=== PATIENT | female | born 1940 | race Caucasian/White ===

== ENCOUNTER → 2018-01-15 14:52 | Outpatient (CLI) | payer MEDICARE, OTHER, SELFPAY ==
[2018-01-15 15:02] LABS: Bacteria Urine None Seen
[2018-01-15 15:57] LABS: Appearance Urine UA CLEAR; Bilirubin Urine UA NEGATIVE (NEGATIVE); Color Urine UA YELLOW; Glucose Urine UA NEGATIVE (Normal); Ketones Urine UA NEGATIVE (NEGATIVE); Leukocyte Esterase Urine UA 1+ (NEGATIVE); Nitrite Urine UA Negative (Negative); Occult Blood Urine UA 3+ (Negative); Protein Urine UA NEGATIVE (Negative); Specific Gravity Urine UA 1.015 (1.000-1.035); Urobilinogen Urine UA 0.2 E.U./dL (0.2); pH Urine UA 5.5 (4.5-8.0)
[2018-01-15 17:06] LABS: Culture Indicated Urine Specimen Cultured; RBC Urine 1-5/HPF (0-5/HPF); Squamous Epithelial Cell Urine 0-1 /HPF; WBC Urine 5-10/HPF (0-5/HPF)
== END ==
PROVIDERS: PCP Family Medicine; Visit Provider Family Medicine
DX: R30.0 Dysuria (principal); R35.0 Frequency of micturition; R39.15 Urgency of urination
CPT/HCPCS: 81001; 87086

== ENCOUNTER → 2018-03-28 12:59 | Outpatient (CLI) | payer MEDICARE, OTHER, SELFPAY ==
--- NOTE | 2018-03-28 | DI.US.S_ITS ---
ULTRASOUND OF RIGHT BREAST: 03/28/2018 CLINICAL: Patient returns for additional imaging over a suspected mass in the right breast. Comparison is made to exams dated: 03/28/2018 mammogram, 06/08/2017 mammogram, and 06/06/2016 mammogram - [facility]. Real-time and Doppler ultrasound of the right breast were performed. Steve scale images of the real-time examination were reviewed. Targeted ultrasound was performed in the region of the patient's reported focal palpable abnormality in the upper outer right breast. No underlying breast mass or abnormality is identified. IMPRESSION: NEGATIVE Negative ultrasound evaluation of the area of the patient's reported palpable abnormality in the upper outer right breast. There is no sonographic evidence of malignancy. Recommend clinical follow-up for further evaluation and management of the patient's reported symptoms. Return to annual screening mammography is also recommended. These results and recommendations were discussed with the patient at the time of the exam by the acct exec. This exam was interpreted at Station ID: [id number]. Electronically Signed By: Hector Soto M.D. ecl/:03/28/2018 20:49:27 letter sent: Clinical Evaluation Ultrasound BI-RADS: 1 Negative
--- NOTE | 2018-03-28 | DI.MG.S_ITS ---
BILATERAL DIGITAL DIAGNOSTIC MAMMOGRAM 3D/2D: 03/28/2018 CLINICAL: Right breast palpable abnormality. Comparison is made to exams dated: 06/08/2017 mammogram, 06/06/2016 mammogram, and 04/13/2015 mammogram - [facility]. There are scattered fibroglandular elements in both breasts. There is a triangular marker overlying the skin of the upper right breast at the site of the patient's reported palpable abnormality. There is no underlying mammographic abnormality. No significant masses, calcifications, or other findings are seen in either breast. IMPRESSION: INCOMPLETE: NEEDS ADDITIONAL IMAGING EVALUATION No mammographic abnormality to correlate with the site of the patient's reported focal palpable abnormality. Targeted diagnostic ultrasound recommended for further evaluation, which will be performed immediately following this exam. This exam was interpreted at Station ID: [id number]. NOTE: For mammograms, a report in lay terms will be sent to the patient. Approximately 15% of breast malignancies will not be visualized mammographically. In the management of a palpable breast mass, a negative mammogram must not discourage biopsy of a clinically suspicious lesion. Electronically Signed By: Hector Soto M.D. ecl/:03/28/2018 20:47:18 letter sent: Additional Imaging Needed ACR BI-RADS Category 0: Incomplete [id number]
== END ==
PROVIDERS: Visit Provider Family Medicine
DX: R92.8 Other abnormal and inconclusive findings on diagnostic imaging of breast (principal); N63.11 Unspecified lump in the right breast, upper outer quadrant
CPT/HCPCS: 76642; 77066; G0279

== ENCOUNTER → 2020-02-22 15:15 | Outpatient (CLI) | payer OTHER, SELFPAY ==
--- NOTE | 2020-02-22 15:16 | DI.MRI.S_ITS ---
PROCEDURE: MR HEAD/BRAIN WO CON INDICATIONS: OTHER AMNESIA TECHNIQUE: Non-contrast axial T1 spin echo, axial T2 fast spin echo, sagittal and axial FLAIR, coronal T2 fast spin echo, axial gradient echo, axial diffusion and ADC through the brain. COMPARISON: None. FINDINGS: Image quality: Excellent. CSF spaces: Ventricles appear symmetric in size and shape. Basal cisterns are patent. No extra-axial fluid collections. Brain: No intracranial bleeds or mass effects. There is moderate cerebral volume loss for age. There are mild periventricular and deep white matter chronic small vessel ischemic changes. Brainstem appears normal. Diffusion-weighted images show no acute ischemic insults. No chronic ischemic insults. Normal intravascular flow voids are present. Skull and face: Calvarial bone marrow is normal in signal. Orbits are normal. There is a 1.2 cm left frontal scalp lesion. Sinuses: Sinuses and mastoids are clear. IMPRESSION: 1. No acute intracranial abnormalities. 2. Moderate cerebral volume loss and mild chronic microvascular ischemic changes. 3. A 1.2 cm left frontal scalp lesion, possibly a sebaceous cyst. Please correlate clinically.. Dictated by: Jacinto Galdamez M.D. on 02/24/2020 at 9:33 Approved by: Jacinto Galdamez M.D. on 02/24/2020 at 9:39
== END ==
PROVIDERS: PCP Internal Medicine; Referring Provider Internal Medicine; Visit Provider Internal Medicine
DX: R41.3 Other amnesia (principal); R22.0 Localized swelling, mass and lump, head
CPT/HCPCS: 70551

== ENCOUNTER → 2020-09-10 10:54 | Outpatient (CLI) | payer OTHER, SELFPAY ==
--- NOTE | 2020-09-10 | DI.CT.S_ITS ---
PROCEDURE: CT ABDOMEN W CON INDICATIONS: Epigastric pain TECHNIQUE: After the administration of oral and intravenous contrast, 5 mm thick sections acquired from the diaphragms to the iliac crests. 5 mm thick coronal and sagittal reformats were acquired. For radiation dose reduction, the following was used: automated exposure control, adjustment of mA and/or kV according to patient size. COMPARISON: [facility], CT, ABDOMEN/PELVIS WITH CONTRAST, 09/01/2014, 15:37. [facility], CT, ABDOMEN W&WO CONTRAST, 01/14/2016, 12:47. FINDINGS: Image quality: Excellent. Lung bases: There is scarring redemonstrated within the medial right middle lobe as well as the left lower lobe. Mild dependent atelectasis is also present. Heart size is normal. Moderate coronary arterial vascular calcification demonstrated. There are postsurgical changes in the left breast to Solid organs: There is progressive increase in size of a thin walled cyst arising from the uncinate process of the pancreas, measuring up to 1.7 x 1.7 x 1.8 cm compared to 1.0 x 1.0 x 1.2 cm on the prior comparison study. There is also a new small cyst anteriorly in the pancreatic head measuring up to 0.6 x 0.6 x 0.9 cm. No discrete solid nodular enhancing components visualized. The main pancreatic duct is nondistended. No solid pancreatic mass identified. No peripancreatic fat stranding or fluid. There is a small indistinct hypervascular focus redemonstrated within the posterior right hepatic dome in segment 7. This appears stable in size compared to the prior studies. The gallbladder appears within normal limits without calcified gallstones. Biliary system is non-dilated. The spleen is normal in size. No adrenal nodules. Kidneys demonstrate no hydronephrosis. Peritoneum and bowel: Visualized bowel loops appear normal in caliber. No free fluid or air. Nodes and vessels: No retroperitoneal or mesenteric adenopathy by size criteria. Aorta and inferior vena cava are normal in size. Bones: No suspicious bony lesions. No vertebral body compression fractures. Miscellaneous: No ventral hernias. IMPRESSION: 1. Increase in size of a small thin walled cystic lesion in the uncinate process of the pancreas. The findings are again suggestive of a side branch IPMN. Although there is progressive increase in size, no other high risk features such as solid nodular enhancing components or main pancreatic duct dilatation are identified. Recommend correlation clinically and GI/surgical consult if indicated. 2. New small thin wall cyst in the pancreatic head also likely represents a side branch IPMN. Recommend attention on follow-up. 3. Stable small hypervascular focus in the right hepatic lobe again likely representing a flash filling hemangioma or vascular shunting. Dictated by: Bravo Hidalgo M.D. on 09/21/2020 at 12:28 Approved by: Bravo Hidalgo M.D. on 09/21/2020 at 12:50
== END ==
PROVIDERS: PCP Internal Medicine; Referring Provider Internal Medicine; Visit Provider Internal Medicine
DX: R10.13 Epigastric pain (principal); K86.2 Cyst of pancreas
CPT/HCPCS: 74160

== ENCOUNTER → 2020-11-21 12:56 | Outpatient (CLI) | payer OTHER, SELFPAY ==
--- NOTE | 2020-11-21 13:00 | DI.MRI.S_ITS ---
PROCEDURE: MR ABDOMEN WO CON INDICATIONS: Cyst of pancreas TECHNIQUE: Coronal HASTE through the abdomen, axial 2-D FLASH in- and [id number], and breath-hold T2 FSE with fat saturation through the biliary system and pancreas. Oblique coronal and axial thin-slice HASTE, radial thick-slab HASTE centered on the extrahepatic bile ducts. Patient terminated the study prior to final coronal sequence. COMPARISON: [facility], CT, CT ABDOMEN W CON, 09/10/2020, 11:46. Prior CT studies from 01/14/2016 and 09/01/2014 archived and unable to be retrieved at time of dictation. FINDINGS: Image quality: There is mild motion artifact. Pancreas and biliary system: The gallbladder appears within normal limits without gallstones identified. Intra- and extra-hepatic biliary ducts are non dilated. No discrete filling defect identified in the common bile duct to suggest choledocholithiasis. Pancreas is normal in morphology, without peripancreatic edema or fluid. Pancreatic duct is normal in caliber. Anteriorly within the uncinate process, there is a thin walled cyst measuring up to 1.8 x 1.8 cm in transverse dimension by 1.8 cm in craniocaudal dimension. Findings appear slightly increased in size although this may be due to differences in technique. No discrete solid components identified but evaluation is limited by absence of intravenous contrast. More superiorly, within the pancreatic head, there is a smaller thin-walled cyst measuring up to 0.6 x 0.6 x 1.1 cm in dimension. A smaller thin walled cyst is also noted more anteriorly in the 0.5 x 0.6 cm in tranverse dimension. These also demonstrate no discrete solid nodular components. A discrete communication with the main pancreatic duct is not well visualized. Other solid organs: Noncontrast evaluation of the liver demonstrates no discrete mass lesion. Spleen is normal in size. No adrenal nodules. Kidneys demonstrate no hydronephrosis. There are bilateral renal cysts. Nodes and vessels: No retroperitoneal or mesenteric adenopathy by size criteria. Aorta and inferior vena cava are normal in size. Bowel and peritoneum: Visualized bowel loops are normal in caliber. No free fluid. There is a small thin-walled lobulated cyst posterior to the right hepatic lobe measuring up to approximately 1.7 x 0.7 cm. Lung bases: No basal pleural effusions. Heart size is normal. Bones and soft tissues: No ventral hernias. Bone marrow is of normal overall signal. IMPRESSION: 1. Small thin walled cysts demonstrated within the pancreas. 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 Comparison with previous studies prior to 2020 is recommended when available to evaluate for stability. If the lesions are stable in size compared to older studies, follow-up evaluation is recommended in 12 months. Consider contrast enhanced images for further evaluation if clinically feasible. 2. No evidence of cholelithiasis, choledocholithiasis, or biliary ductal dilatation. 3. Small cystic lesion demonstrated posterior to the right hepatic lobe of doubtful clinical significance. Dictated by: Bravo Hidalgo M.D. on 11/23/2020 at 12:38 Approved by: Bravo Hidalgo M.D. on 11/23/2020 at 13:55
== END ==
PROVIDERS: PCP Internal Medicine; Referring Provider Internal Medicine Gastroenterology; Visit Provider Internal Medicine Gastroenterology
DX: K86.2 Cyst of pancreas (principal)
CPT/HCPCS: 74181